=== PATIENT | male | born 1990 | race Caucasian/White ===

== ENCOUNTER 2024-09-30 09:04 | Emergency (ER) | payer SELFPAY ==
[~2024-09-30] VITALS: Ht 180.3 cm; Wt 81.6 kg
[~2024-09-30 09:04] MED LIST: BENTYL10 MG PO; MOTRIN600 MG PO; NORFLEX100 MG PO
[2024-09-30] MEDS ORDERED: diazePAM 5 MG TAB PO ONE (12:20)
[2024-09-30] MEDS ORDERED: Acetaminophen/Oxycodone 5 MG/325 MG TABLET PO ONE (12:20)
[2024-09-30] MEDS ORDERED: METHOCARBAMOL1000 MG PO (12:55)
[2024-09-30] MEDS ORDERED: MELOXICAM15 MG PO (12:55)
[2024-09-30] MEDS ORDERED: TANLOR1000 MG PO (18:39)
== END 2024-09-30 13:03 | disposition home or self-care (01) ==
LOC: ED 09:04
DX: M54.50 Low back pain, unspecified (principal); J45.909 Unspecified asthma, uncomplicated; Z79.899 Other long term (current) drug therapy; Z88.0 Allergy status to penicillin; Z88.8 Allergy status to other drugs, medicaments and biological substances; Z98.890 Other specified postprocedural states